=== PATIENT | male | born 1975 | race Two or more races ===

== ENCOUNTER 2020-12-27 23:30 | Emergency (ER) | payer OTHER, SELFPAY ==
[~2020-12-27] VITALS: Ht 172.7 cm; Wt 75.6 kg
[2020-12-28] MEDS ORDERED: OMNIPAQUE 350 MG/ML, 100ML BOTTLE ONE (00:15)
--- NOTE | 2020-12-28 00:25 | NUR ---
PT TO ED FOR BLOOD IN STOOL. PT STATES HE HAS BEEN HAVING THIS FOR ~3 YRS, TONIGHT WAS WORSE. PT CALLED EMS, BUT CAME IN POV. PT HX OF HEMORRHOIDS. B/L LOWER QUAD TENDERNESS. AT FOR RECTAL EXAM. NO ACTIVE BLEEDING. PIV ESTB, MEDS PER OCT. CALL LIGHT INREACH.. WILL CTM.
[2020-12-28] MEDS ORDERED: MORPHINE SULFATE 4 MG/ML, 1ML IVPush PRN (00:30)
[2020-12-28] MEDS ORDERED: SODIUM CHLORIDE FLUSH 10ML SYR IVF ONE (00:30)
[2020-12-28] MEDS ORDERED: ONDANSETRON 2MG/ML, 2ML IVPush ONE (00:30)
[2020-12-28] MEDS ORDERED: ONDANSETRON 2MG/ML, 2ML ONE (00:30)
[2020-12-28] MEDS ORDERED: SODIUM CHLORIDE 0.9% 1,000ML IVBOLUS ONE (00:30)
[2020-12-28] MEDS ORDERED: MORPHINE SULFATE 4 MG/ML, 1ML ONE (00:30)
[2020-12-28 00:37] LABS: BASOPHILS % (AUTO) 1 % (0-1); EOSINOPHILS % (AUTO) 1 % (1-7); LYMPHOCYTES % (AUTO) 32 % (22-44); MD NO; MEAN CORPUSCULAR HEMOGLOBIN 30.6 pg (27.5-34.5); MEAN CORPUSCULAR HGB CONC 34.9 g/dL (33.2-36.2); MEAN PLATELET VOLUME 7.4 fL (7.4-10.4); MONOCYTES % (AUTO) 8 % (2-9); NEUTROPHILS % (AUTO) 59 % (42-75); PLATELET COUNT 335 x10^3/uL (130-400); RED BLOOD COUNT 4.99 x10^6/uL (4.38-5.82); RED CELL DISTRIBUTION WIDTH 12.7 % (9.4-14.8)
[2020-12-28 00:49] LABS: MICROSCOPIC AUTO
[2020-12-28 00:49] LABS: ALANINE AMINOTRANSFERASE 38 U/L (12-78); ALBUMIN 3.8 g/dL (3.4-5.0); ANION GAP 4 mmol/L (5-15); CALCIUM 9.5 mg/dL (8.5-10.1); CHLORIDE 103 mmol/L (98-107); CREATININE 0.91 mg/dL (0.7-1.3)
[2020-12-28 00:51] LABS: ALKALINE PHOSPHATASE 89 U/L (45-117); BILIRUBIN,TOTAL 0.4 mg/dL (0.2-1.0); TOTAL PROTEIN 7.4 g/dL (6.4-8.2)
--- NOTE | 2020-12-28 01:12 | NUR ---
TO CT VIA CART
[2020-12-28] MEDS ORDERED: INSULIN SINGLE DOSE, ER ONE (01:18)
[2020-12-28] MEDS ORDERED: INSULIN REGULAR 100 UNITS/ML, 3ML VIAL IVPush ONE (01:30)
--- NOTE | 2020-12-28 01:34 | NUR ---
PT BACK FROM CT. MED PER OCT. CALL LIGHT IN REACH. WILL CTM.
[2020-12-28 03:01] VITALS: BP 143/88
--- NOTE | 2020-12-28 03:06 | NUR ---
BEDSIDE REPORT FROM FIOR RODRIGUEZ
--- NOTE | 2020-12-28 03:10 | NUR ---
PT SUPINE ON GURNEY, RESTING COMFORTABLY WITH EYES CLOSED. PT DENIES ANY NEEDS AT THIS TIME. CALL LIGHT AND BELONGINGS WITHIN REACH.
--- NOTE | 2020-12-28 03:34 | NUR ---
Patient given discharge instructions and they have confirmed that they understand the instructions. Patient ambulatory with steady gait.
== END 2020-12-28 03:45 | disposition home or self-care (01) ==
LOC: ED 12-28
DX: K64.8 Other hemorrhoids (principal); K62.5 Hemorrhage of anus and rectum; K60.0 Acute anal fissure; K59.00 Constipation, unspecified; R10.84 Generalized abdominal pain; E11.65 Type 2 diabetes mellitus with hyperglycemia; I10 Essential (primary) hypertension; E78.5 Hyperlipidemia, unspecified; Z88.8 Allergy status to other drugs, medicaments and biological substances; Z90.49 Acquired absence of other specified parts of digestive tract
CPT/HCPCS: 36415; 74177; 80053; 81001; 83690; 85025; 96361; 96374; 96375; 99285; J1815; J2270; J2405; J7030; Q9967